=== PATIENT | male | born 1995 | race Hispanic/Latino ===

== ENCOUNTER 2022-05-23 02:49 | Emergency (ER) | payer OTHER, SELFPAY ==
--- OUTSIDE RECORDS SUMMARY | 2022-05-23 02:54 | XMS REPORT | Continuity of Care Document ---
:1995 Author Organization [facility] t Address [address] [place] [address] Care Team Providers Name Role Phone Pcp, Patient Does Not Have A Primary Care Physician +[id number] JEANIE HOLGUIN Attending Clinician Unavailable Jeanie Holguin MD Attending Clinician DAVID YARBROUGH Attending Clinician Unavailable Provider, [facility] Attending Clinician Unavailable MIRIAM PATINO Attending Clinician Unavailable Miriam [place] Attending Clinician Doctor Unassigned, [place] Attending Clinician Unavailable Payers Payer Name Policy Type Policy Number Effective Date Expiration Date [facility] [id number] 2021 [facility] MEDICAID 00:00:00 Problems Condition Condition Condition Status Onset Resolution Last Treating Co mments Source Name Details Category Date Date Treatment Clinician Date No known No known Disease Unive rs active active ity of problems problems [facility] Allergies, Adverse Reactions, Alerts Allergy Allergy Status Severity Reaction(s) Onset Inactive Treating Comm ents Source Name Type Date Date Clinician NO KNOWN Drug Active Univers ALLERGIE Class ity of S [facility] Social History Social Habit Start Date Stop Date Quantity Comments Source Exposure to 2022-05-06 2022-05-16 Not sure University of SARS-CoV-2 00:00:00 10:44:00 [facility] (event) [place] Tobacco use and 2022-03-03 2022-03-03 Smokeless tobacco Un iversity of exposure 00:00:00 00:00:00 non-user [facility] Sex Assigned At [birth year] Universit y of 00:00:00 00:00:00 [facility] Smoking Status Start Date Stop Date Source Unknown [facility] Never smoked tobacco [facility] Medications Ordered Filled Start Stop Current Ordering Indication Dosage Frequency Signature Comments Components Source Medication Medication Date Date Medication? Clinician (SIG) Name Name predniSONE 2021- No [id number] 40mg U nivers (DELTASONE) 05-16 ity of tablet 40 17:15: 16:09 [place] mg 00 :00 Medical Branch ipratropium 2021- No [id number] .5mg Univers (ATROVENT) 05-16 ity of 0.02 % 17:15: 16:13 [place] nebulizer 00 :00 Medical solution Branch 0.5 mg albuterol 2021- No [id number] 2.5mg U nivers (PROVENTIL) 05-16 ity of 2.5 mg /3 17:15: 16:13 [place] mL (0.083 00 :00 Medical %) Branch nebulizer solution 2.5 mg albuterol 2021- No [id number] 2.5mg 2.5 mg, Univers (PROVENTIL) 05-16 Inhalation i ty of 2.5 mg /3 17:15: 16:13 , ONCE [place] mL (0.083 00 :00 NOW, 1 Medical %) dose, On Branch nebulizer Sat solution 05/16/22 at 2.5 mg 1215, Routine ipratropium 2021- No [id number] .5mg 0.5 mg, Univers (ATROVENT) 05-16 Inhalation it y of 0.02 % 17:15: 16:13 , ONCE, 1 [place] nebulizer 00 :00 dose, On Medica l solution Sat Branch 0.5 mg 05/16/22 at 1215, Routine predniSONE 2021- No [id number] 40mg 40 mg, Univers (DELTASONE) 05-16 Oral, ity of tablet 40 17:15: 16:09 ONCE, 1 [place] mg 00 :[place] dose, On Medical Sat Branch 05/16/22 at 1215, Routine albuterol Yes [id number] 2{puff} Inhale 2 Univers 90 7-30 Puffs ity of mcg/actuati 00:00: every 6 [place] as on inhaler 00 (six) Medical hours as Branch needed for Shortness of Breath. benzonatate 0 Yes [id number] 200mg Take 2 Univers 100 mg 7-30 capsules ity of capsule 00:00: by mouth [place] every 8 Medical (eight) Branch hours as needed for Cough. Nebulizer & Yes [id number] Use as Univers Compressor 7-30 directed ity o f For Neb 00:00: Medical Branch albuterol 0 Yes [id number] 2.5mg Inhale 3 Univers 2.5 mg /3 7-30 mL every 4 ity of mL (0.083 00:00: (four) [place] %) 00 hours as Medical nebulizer needed for Bran ch solution Shortness of Breath. albuterol Yes [id number] 2{puff} Inhale 2 Univers 90 7-30 Puffs ity of mcg/actuati 00:00: every 6 [place] as on inhaler 00 (six) Medical hours as Branch needed for Shortness of Breath. benzonatate 0 Yes [id number] 200mg Take 2 Univers 100 mg 7-30 capsules ity of capsule 00:00: by mouth [place] every 8 Medical (eight) Branch hours as needed for Cough. Nebulizer & Yes [id number] Use as Univers Compressor 7-30 directed ity o f For Neb 00:00: Medical Branch albuterol 0 Yes [id number] 2.5mg Inhale 3 Univers 2.5 mg /3 7-30 mL every 4 ity of mL (0.083 00:00: (four) [place] %) 00 hours as Medical nebulizer needed for Bran ch solution Shortness of Breath. predniSONE 2021- Yes [id number] 40mg Take 2 Univers 20 mg 7-30 08-05 tablets by ity of tablet 00:00: 04:59 mouth in [place] 00 :00 the Medical morning Branch for 5 days. predniSONE 2021- Yes [id number] 40mg Take 2 Univers 20 mg 7-30 08-05 tablets by ity of tablet 00:00: 04:59 mouth in [place] 00 :00 the Medical morning Branch for 5 days. albuterol 2021- No [id number] 2.5mg Un heidy (PROVENTIL) 05-11 ity of 2.5 mg /3 20:45: 19:37 [place] mL (0.083 00 :00 Medical %) Branch nebulizer solution 2.5 mg ipratropium 2021- No [id number] .5mg U nivers (ATROVENT) 05-11 ity of 0.02 % 20:45: 19:38 [place] nebulizer 00 :00 Medical solution Branch 0.5 mg ipratropium 2021- No [id number] .[id number] 0.5 mg, Univers (ATROVENT) 05-11 Inhalation it y of 0.02 % 20:45: 19:38 , ONCE, 1 [place] nebulizer 00 :00 dose, On Medica l solution Mon Branch 0.5 mg 05/11/22 at 1545, Routine albuterol 2021- No [id number] 2.5mg 2.5 mg, Univers (PROVENTIL) 05-11 Inhalation i ty of 2.5 mg /3 20:45: 19:37 , ONCE, 1 [place] mL (0.083 00 :00 dose, On Medica l %) Mon Branch nebulizer 05/11/22 at solution 1545, 2.5 mg Routine fexofenadin Yes [id number] 1{tbl} Take 1 Univers e-pseudoeph 7-25 tablet by ity of edrine 00:00: mouth in [place] (GIRISH-D) 00 the Medical 60-120 mg morning Branch per tablet and 1 tablet in the evening. meclizine Yes [id number] 25mg Take 1 U nivers 25 mg 7-25 tablet by ity of tablet 00:00: mouth 3 [place] 00 (three) Medical times Branch daily as needed for Dizziness. albuterol Yes [id number] 2{puff} Inhale 2 Univers 90 7-25 Puffs ity of mcg/actuati 00:00: every 6 [place] as on inhaler 00 (six) Medical hours as Branch needed for Wheezing, Shortness of Breath or Bronchospa sm. fluticasone Yes [id number] 2{spray Use 2 Univers propionate 7-25 } Sprays in ity of 50 00:00: each [place] mcg/actuati 00 nostril in Me dical on nasal the Branch spray morning. fexofenadin Yes [id number] 1{tbl} Take 1 Univers e-pseudoeph 7-25 tablet by ity of edrine 00:00: mouth in [place] ([facility]) 00 the Medical 60-120 mg morning Branch per tablet and 1 tablet in the evening. meclizine Yes [id number] 25mg Take 1 U nivers 25 mg 7-25 tablet by ity of tablet 00:00: mouth 3 [place] (three) Medical times Branch daily as needed for Dizziness. albuterol Yes [id number] 2{puff} Inhale 2 Univers 90 7-25 Puffs ity of mcg/actuati 00:00: every 6 [place] as on inhaler 00 (six) Medical hours as Branch needed for Wheezing, Shortness of Breath or Bronchospa sm. fluticasone Yes [id number] 2{spray Use 2 Univers propionate 7-25 } Sprays in ity of 50 00:00: each [place] mcg/actuati 00 nostril in [place] dical on nasal the Branch spray morning. fexofenadin Yes [id number] 1{tbl} Take 1 Univers e-pseudoeph 7-25 tablet by ity of edrine 00:00: mouth in [place] ([facility]) 00 the Medical 60-120 mg morning Branch per tablet and 1 tablet in the evening. meclizine Yes [id number] 25mg Take 1 U nivers 25 mg 7-25 tablet by ity of tablet 00:00: mouth 3 [place] (three) Medical times Branch daily as needed for Dizziness. albuterol Yes [id number] 2{puff} Inhale 2 Univers 90 7-25 Puffs ity of mcg/actuati 00:00: every 6 [place] as on inhaler 00 (six) Medical hours as Branch needed for Wheezing, Shortness of Breath or Bronchospa sm. fluticasone Yes [id number] 2{spray Use 2 Univers propionate 7-25 } Sprays in ity of 50 00:00: each [place] mcg/actuati 00 nostril in Me dical on nasal the Branch spray morning. fexofenadin Yes [id number] 1{tbl} Take 1 Univers e-pseudoeph 7-25 tablet by ity of edrine 00:00: mouth in [place] ([facility]) 00 the Medical 60-120 mg morning Branch per tablet and 1 tablet in the evening. meclizine Yes [id number] 25mg Take 1 U nivers 25 mg 7-25 tablet by ity of tablet 00:00: mouth 3 [place] (three) Medical times Branch daily as needed for Dizziness. albuterol Yes [id number] 2{puff} Inhale 2 Univers 90 7-25 Puffs ity of mcg/actuati 00:00: every 6 [place] as on inhaler 00 (six) Medical hours as Branch needed for Wheezing, Shortness of Breath or Bronchospa sm. fluticasone Yes [id number] 2{spray Use 2 Univers propionate 7-25 } Sprays in ity of 50 00:00: each [place] mcg/actuati 00 nostril in [place] dical on nasal the Branch spray morning. fexofenadin Yes [id number] 1{tbl} Take 1 Univers e-pseudoeph 7-25 tablet by ity of edrine 00:00: mouth in [place] ([facility]) 00 the Medical 60-120 mg morning Branch per tablet and 1 tablet in the evening. meclizine Yes [id number] 25mg Take 1 U nivers 25 mg 7-25 tablet by ity of tablet 00:00: mouth 3 [place] (three) Medical times Branch daily as needed for Dizziness. albuterol Yes [id number] 2{puff} Inhale 2 Univers 90 7-25 Puffs ity of mcg/actuati 00:00: every 6 [place] as on inhaler 00 (six) Medical hours as Branch needed for Wheezing, Shortness of Breath or Bronchospa sm. fluticasone Yes [id number] 2{spray Use 2 Univers propionate 7-25 } Sprays in ity of 50 00:00: each [place] mcg/actuati 00 nostril in Me dical on nasal the Branch spray morning. cetirizine Yes [id number] 10mg Take 1 U nivers (ZYRTEC) 10 5-17 tablet by ity of mg tablet 00:00: mouth 00 daily. Medical Branch bromphenira Yes [id number] 5mL Take 5 mL Univers mine-pseudo 5-17 by mouth 4 it y of ephedrine-D 00:00: (four) [place] M (BROMFED 00 times Medical DM) 2-30-10 daily as Bran ch mg/5 mL needed for syrup Congestion /Allergies . cetirizine Yes [id number] 10mg Take 1 U nivers (ZYRTEC) 10 5-17 tablet by ity of mg tablet 00:00: mouth 00 daily. Medical Branch bromphenira Yes [id number] 5mL Take 5 mL Univers mine-pseudo 5-17 by mouth 4 it y of ephedrine-D 00:00: (four) [place] M (BROMFED 00 times Medical DM) 2-30-10 daily as Bran ch mg/5 mL needed for syrup Congestion /Allergies . cetirizine Yes [id number] 10mg Take 1 U nivers (ZYRTEC) 10 5-17 tablet by ity of mg tablet 00:00: mouth [place] 00 daily. Medical Branch bromphenira Yes [id number] 5mL Take 5 mL Univers mine-pseudo 5-17 by mouth 4 it y of ephedrine-D 00:00: (four) [place] M (BROMFED 00 times Medical DM) 2-30-10 daily as Bran ch mg/5 mL needed for syrup Congestion /Allergies . cetirizine Yes [id number] 10mg Take 1 U nivers (ZYRTEC) 10 5-17 tablet by ity of mg tablet 00:00: mouth 00 daily. Medical Branch bromphenira Yes [id number] 5mL Take 5 mL Univers mine-pseudo 5-17 by mouth 4 it y of ephedrine-D 00:00: (four) [place] M (BROMFED 00 times Medical DM) 2-30-10 daily as Bran ch mg/5 mL needed for syrup Congestion /Allergies . cetirizine 0 Yes [id number] 10mg Take 1 U nivers (ZYRTEC) 10 5-17 tablet by ity of mg tablet 00:00: mouth [place] 00 daily. Medical Branch bromphenira 0 Yes [id number] 5mL Take 5 mL Univers mine-pseudo 5-17 by mouth 4 it y of ephedrine-D 00:00: (four) [place] M (BROMFED 00 times Medical DM) 2-30-10 daily as Bran ch mg/5 mL needed for syrup Congestion /Allergies . cetirizine Yes [id number] 10mg Take 1 U nivers (ZYRTEC) 10 5-17 tablet by ity of mg tablet 00:00: mouth [place] 00 daily. Medical Branch bromphenira Yes [id number] 5mL Take 5 mL Univers mine-pseudo 5-17 by mouth 4 it y of ephedrine-D 00:00: (four) [place] M (BROMFED 00 times Medical DM) 2-30-10 daily as Bran ch mg/5 mL needed for syrup Congestion /Allergies . fluticasone 2021-0 Yes [id number] 1{spray Use 1 Univers propionate 5-17 } [place] in ity o f 50 00:00: each [place] mcg/actuati 00 nostril Medic al on nasal daily. Branch spray cetirizine 0 Yes [id number] 10mg Take 1 U nivers (ZYRTEC) 10 5-17 tablet by ity of mg tablet 00:00: mouth [place] 00 daily. Medical Branch bromphenira 0 Yes [id number] 5mL Take 5 mL Univers mine-pseudo 5-17 by mouth 4 it y of ephedrine-D 00:00: (four) [place] M (BROMFED 00 times Medical DM) 2-30-10 daily as Bran ch mg/5 mL needed for syrup Congestion /Allergies . fluticasone 2021-0 Yes [id number] 1{spray Use 1 Univers propionate 5-17 } [place] in ity o f 50 00:00: each [place] mcg/actuati 00 nostril Medic al on nasal daily. Branch spray fluticasone 2021-2021- No [id number] 1{spray Use 1 Univers propionate 5-17 07-25 } [place] in ity of 50 00:00: 00:00 each [place] mcg/actuati 00 :00 nostril Medic al on nasal daily. Branch spray bromphenira 0 Yes [id number] 5mL Take 5 mL Univers mine-pseudo 3-21 by mouth 4 it y of ephedrine-D 00:00: (four) [place] M (BROMFED 00 times Medical DM) 2-30-10 daily as Bran ch mg/5 mL needed for syrup Congestion /Allergies or Cough. bromphenira 0 2021- No [id number] 5mL Take 5 mL Univers mine-pseudo 3-21 05-17 by mouth 4 i ty of ephedrine-D 00:00: 00:00 (four) [place] M (BROMFED 00 :00 times Medical DM) 2-30-10 daily as Bran ch mg/5 mL needed for syrup Congestion /Allergies or Cough. methocarbam 2018- Yes [id number] 500mg Take 1 Univers ol 500 mg 7-10 tablet by ity o f tablet 00:00: mouth [address] [place] [address] ([facility]) Medical times Branch daily. methocarbam Yes [id number] 500mg Take 1 Univers ol 500 mg 7-10 tablet by ity o f tablet 00:00: mouth [address] [place] [address] ([facility]) Medical times Branch daily. ibuprofen 2018- Yes [id number] 800mg Take 1 Univers 800 mg 7-10 tablet by ity of tablet 00:00: mouth [place] 00 every 8 Medical (eight) Branch hours. methocarbam 2018- Yes [id number] 500mg Take 1 Univers ol 500 mg 7-10 tablet by ity o f tablet 00:00: mouth [address] [place] [address] ([facility]) Medical times Branch daily. ibuprofen 2019- Yes [id number] 800mg Take 1 Univers 800 mg 7-10 tablet by ity of tablet 00:00: mouth [place] 00 every 8 Medical (eight) Branch hours. methocarbam 2019-0 Yes [id number] 500mg Take 1 Univers ol 500 mg 7-10 tablet by ity o f tablet 00:00: mouth [address] [place] [address] ([facility]) Medical times Branch daily. ibuprofen 2019- Yes [id number] 800mg Take 1 Univers 800 mg 7-10 tablet by ity of tablet 00:00: mouth [place] 00 every 8 Medical (eight) Branch hours. methocarbam 2018-0 Yes [id number] 500mg Take 1 Univers ol 500 mg 7-10 tablet by ity o f tablet 00:00: mouth 4 (four) Medical times Branch daily. ibuprofen 2019-0 Yes [id number] 800mg Take 1 Univers 800 mg 7-10 tablet by ity of tablet 00:00: mouth [place] 00 every 8 Medical (eight) Branch hours. ibuprofen 2019-0 Yes [id number] 800mg Take 1 Univers 800 mg 7-10 tablet by ity of tablet 00:00: mouth [place] 00 every 8 Medical (eight) Branch hours. methocarbam 2019-0 Yes [id number] 500mg Take 1 Univers ol 500 mg 7-10 tablet by ity o f tablet 00:00: mouth (four) Medical times Branch daily. methocarbam 2019-0 Yes [id number] 500mg Take 1 Univers ol 500 mg 7-10 tablet by ity o f tablet 00:00: mouth (four) Medical times Branch daily. ibuprofen 2019-0 Yes [id number] 800mg Take 1 Univers 800 mg 7-10 tablet by ity of tablet 00:00: mouth [place] 00 every 8 Medical (eight) Branch hours. methocarbam 2019-0 Yes [id number] 500mg Take 1 Univers ol 500 mg 7-10 tablet by ity o f tablet 00:00: mouth (four) Medical times Branch daily. ibuprofen 2019-0 Yes [id number] 800mg Take 1 Univers 800 mg 7-10 tablet by ity of tablet 00:00: mouth [place] 00 every 8 Medical (eight) Branch hours. methocarbam 2019-0 Yes [id number] 500mg Take 1 Univers ol 500 mg 7-10 tablet by ity o f tablet 00:00: mouth (four) Medical times Branch daily. ibuprofen 2019-0 Yes [id number] 800mg Take 1 Univers 800 mg 7-10 tablet by ity of tablet 00:00: mouth [place] 00 every 8 Medical (eight) Branch hours. methocarbam 2019-0 Yes [id number] 500mg Take 1 Univers ol 500 mg 7-10 tablet by ity o f tablet 00:00: mouth 4 (four) Medical times Branch daily. ibuprofen 2019-0 Yes [id number] 800mg Take 1 Univers 800 mg 7-10 tablet by ity of tablet 00:00: mouth [place] 00 every 8 Medical (eight) Branch hours. ibuprofen 2019-0 Yes [id number] 800mg Take 1 Univers 800 mg 7-10 tablet by ity of tablet 00:00: mouth [place] 00 every 8 Medical (eight) Branch hours. hydrocortis 2016 Yes 4[drp] Place 4 U nivers one-acetic 7-13 Drops in ity o f acid 00:00: right ear [place] (VOSOL-HC) 00 3 (three) Medi ashkan 1-2 % otic times Branch drops daily. ibuprofen 2016 Yes 800mg Take 1 Unive rs (MOTRIN) 7-13 tablet by ity of 800 mg 00:00: mouth [place] tablet 00 every 6 Medical (six) Branch hours as needed for Pain unrelieved by Tylenol or Temp > 38.5 C. ciprofloxac Yes 4[drp] Place 4 U nivers in-dexameth 7-13 Drops in ity of asone 00:00: right ear [place] (CIPRODEX) 00 2 (two) Medica l 0.3-0.1 % times Branch otic drops daily. hydrocortis Yes 4[drp] Place 4 U nivers one-acetic 7-13 Drops in ity o f acid 00:00: right ear [place] (VOSOL-HC) 00 3 (three) Medi ashkan 1-2 % otic times Branch drops daily. ibuprofen Yes 800mg Take 1 Unive rs (MOTRIN) 7-13 tablet by ity of 800 mg 00:00: mouth [place] tablet 00 every 6 Medical (six) Branch hours as needed for Pain unrelieved by Tylenol or Temp > 38.5 C. ciprofloxac Yes 4[drp] Place 4 U nivers in-dexameth 7-13 Drops in ity of asone 00:00: right ear [place] (CIPRODEX) 00 2 (two) Medica l 0.3-0.1 % times Branch otic drops daily. hydrocortis Yes 4[drp] Place 4 U nivers one-acetic 7-13 Drops in ity o f acid 00:00: right ear [place] (VOSOL-HC) 00 3 (three) Medi ashkan 1-2 % otic times Branch drops daily. ibuprofen Yes 800mg Take 1 Unive rs (MOTRIN) 7-13 tablet by ity of 800 mg 00:00: mouth [place] tablet 00 every 6 Medical (six) Branch hours as needed for Pain unrelieved by Tylenol or Temp > 38.5 C. hydrocortis Yes 4[drp] Place 4 U nivers one-acetic 7-13 Drops in ity o f acid 00:00: right ear [place] (VOSOL-HC) 00 3 (three) Medi ashkan 1-2 % otic times Branch drops daily. ciprofloxac Yes 4[drp] Place 4 U nivers in-dexameth 7-13 Drops in ity of asone 00:00: right ear [place] (CIPRODEX) 00 2 (two) Medica l 0.3-0.1 % times Branch otic drops daily. ibuprofen Yes 800mg Take 1 Unive rs (MOTRIN) 7-13 tablet by ity of 800 mg 00:00: mouth [place] tablet 00 every 6 Medical (six) Branch hours as needed for Pain unrelieved by Tylenol or Temp > 38.5 C. ciprofloxac Yes 4[drp] Place 4 U nivers in-dexameth 7-13 Drops in ity of asone 00:00: right ear [place] (CIPRODEX) 00 2 (two) Medica l 0.3-0.1 % times Branch otic drops daily. hydrocortis Yes 4[drp] Place 4 U nivers one-acetic 7-13 Drops in ity o f acid 00:00: right ear [place] (VOSOL-HC) 00 3 (three) Medi ashkan 1-2 % otic times Branch drops daily. ibuprofen Yes 800mg Take 1 Unive rs (MOTRIN) 7-13 tablet by ity of 800 mg 00:00: mouth [place] tablet 00 every 6 Medical (six) Branch hours as needed for Pain unrelieved by Tylenol or Temp > 38.5 C. ciprofloxac Yes 4[drp] Place 4 U nivers in-dexameth 7-13 Drops in ity of asone 00:00: right ear [place] (CIPRODEX) 00 2 (two) Medica l 0.3-0.1 % times Branch otic drops daily. hydrocortis 2016- Yes 4[drp] Place 4 U nivers one-acetic 7-13 Drops in ity o f acid 00:00: right ear [place] (VOSOL-HC) 00 3 (three) Medi ashkan 1-2 % otic times Branch drops daily. ibuprofen 2015- Yes 800mg Take 1 Unive rs (MOTRIN) 7-13 tablet by ity of 800 mg 00:00: mouth [place] tablet 00 every 6 Medical (six) Branch hours as needed for Pain unrelieved by Tylenol or Temp > 38.5 C. ciprofloxac 2015- Yes 4[drp] Place 4 U nivers in-dexameth 7-13 Drops in ity of asone 00:00: right ear [place] (CIPRODEX) 00 2 (two) Medica l 0.3-0.1 % times Branch otic drops daily. hydrocortis Yes 4[drp] Place 4 U nivers one-acetic 7-13 Drops in ity o f acid 00:00: right ear [place] (VOSOL-HC) 00 3 (three) Medi ashkan 1-2 % otic times Branch drops daily. ibuprofen Yes 800mg Take 1 Unive rs (MOTRIN) 7-13 tablet by ity of 800 mg 00:00: mouth [place] tablet 00 every 6 Medical (six) Branch hours as needed for Pain unrelieved by Tylenol or Temp > 38.5 C. ciprofloxac 2015- Yes 4[drp] Place 4 U nivers in-dexameth 7-13 Drops in ity of asone 00:00: right ear [place] (CIPRODEX) 00 2 (two) Medica l 0.3-0.1 % times Branch otic drops daily. hydrocortis 0 Yes 4[drp] Place 4 U nivers one-acetic 7-13 Drops in ity o f acid 00:00: right ear [place] (VOSOL-HC) 00 3 (three) Medi ashkan 1-2 % otic times Branch drops daily. ibuprofen 2015- Yes 800mg Take 1 Unive rs (MOTRIN) 7-13 tablet by ity of 800 mg 00:00: mouth [place] tablet 00 every 6 Medical (six) Branch hours as needed for Pain unrelieved by Tylenol or Temp > 38.5 C. hydrocortis Yes 4[drp] Place 4 U nivers one-acetic 7-13 Drops in ity o f acid 00:00: right ear [place] (VOSOL-HC) 00 3 (three) Medi ashkan 1-2 % otic times Branch drops daily. ibuprofen Yes 800mg Take 1 Unive rs (MOTRIN) 7-13 tablet by ity of 800 mg 00:00: mouth [place] tablet 00 every 6 Medical (six) Branch hours as needed for Pain unrelieved by Tylenol or Temp > 38.5 C. ciprofloxac Yes 4[drp] Place 4 U nivers in-dexameth 7-13 Drops in ity of asone 00:00: right ear [place] (CIPRODEX) 00 2 (two) Medica l 0.3-0.1 % times Branch otic drops daily. ciprofloxac Yes 4[drp] Place 4 U nivers in-dexameth 7-13 Drops in ity of asone 00:00: right ear [place] (CIPRODEX) 00 2 (two) Medica l 0.3-0.1 % times Branch otic drops daily. hydrocortis Yes 4[drp] Place 4 U nivers one-acetic 7-13 Drops in ity o f acid 00:00: right ear [place] (VOSOL-HC) 00 3 (three) Medi ashkan 1-2 % otic times Branch drops daily. ibuprofen Yes 800mg Take 1 Unive rs (MOTRIN) 7-13 tablet by ity of 800 mg 00:00: mouth [place] tablet 00 every 6 Medical (six) Branch hours as needed for Pain unrelieved by Tylenol or Temp > 38.5 C. ciprofloxac Yes 4[drp] Place 4 U nivers in-dexameth 7-13 Drops in ity of asone 00:00: right ear [place] (CIPRODEX) 00 2 (two) Medica l 0.3-0.1 % times Branch otic drops daily. Vital Signs Vital Name Observation Time Observation Value Comments Source Systolic blood 2022-05-16 15:52:00 122 mm[Hg] Univer sity of pressure [place] [facility] Diastolic blood 2022-05-16 15:52:00 82 mm[Hg] Unive rsity of pressure [place] [facility] Heart rate 2022-05-16 15:52:00 94 /min [facility] [place] [facility] Body temperature 2022-05-16 15:52:00 36.5 [facility] [place] [facility] ers[facility] [place] [facility] Body height 2022-05-16 15:52:00 172.7 cm [facility] [place] [facility] Body weight 2022-05-16 15:52:00 112.175 kg [facility] [place] [facility] BMI 2022-05-16 15:52:00 37.60 kg/m2 [facility] [place] [facility] Oxygen saturation in 2022-05-16 15:52:00 94 /min University of Arterial blood by [facility] Pulse oximetry Branch Systolic blood 2022-05-11 19:18:00 126 mm[Hg] Univer sity of pressure [place] [facility] Diastolic blood 2022-05-11 19:18:00 81 mm[Hg] Unive rsity of pressure [place] [facility] Heart rate 2022-05-11 19:18:00 88 /min [facility] [place] [facility] Body temperature 2022-05-11 19:18:00 36.78 [place] [facility] [place] [facility] Respiratory rate 2022-05-11 19:18:00 18 /min [facility] ers[facility] [place] [facility] Body height 2022-05-11 19:18:00 172.7 cm [facility] [place] [facility] Body weight 2022-05-11 19:18:00 115.667 kg [facility] [place] [facility] BMI 2022-05-11 19:18:00 38.77 kg/m2 [facility] [place] [facility] Oxygen saturation in 2022-05-11 19:18:00 98 /min University of Arterial blood by [facility] ashkan Pulse oximetry Branch Systolic blood 2022-03-03 19:43:00 123 mm[Hg] Univer sity of pressure [place] [facility] Diastolic blood 2022-03-03 19:43:00 80 mm[Hg] Unive rsity of pressure [place] [facility] Heart rate 2022-03-03 19:43:00 83 /min [facility] [place] [facility] Body temperature 2022-03-03 19:43:00 36.61 [place] [facility] [place] [facility] Respiratory rate 2022-03-03 19:43:00 17 /min [facility] [place] [facility] Body height 2022-03-03 19:43:00 172.7 cm [facility] [place] [facility] Body weight 2022-03-03 19:43:00 114.306 kg [facility] [place] [facility] BMI 2022-03-03 19:43:00 38.32 kg/m2 [facility] [place] [facility] Oxygen saturation in 2022-03-03 19:43:00 98 /min [facility] of Arterial blood by [place] [facility] Pulse oximetry Branch Systolic blood 2022-01-05 23:58:00 118 mm[Hg] Univer [facility]ity of pressure [facility] Diastolic blood 2022-01-05 23:58:00 77 mm[Hg] Unive rsity of pressure [facility] Heart rate 2022-01-05 23:58:00 76 /min [facility] Body temperature 2022-01-05 23:58:00 36.72 [facility] Respiratory rate 2022-01-05 23:58:00 14 /min [facility] Body height 2022-01-05 23:58:00 172.7 cm [facility] Body weight 2022-01-05 23:58:00 113.399 kg [facility] BMI 2022-01-05 23:58:00 38.01 kg/m2 [facility] Oxygen saturation in 2022-01-05 23:58:00 99 /min [facility] of Arterial blood by [facility] Pulse oximetry Branch Procedures Procedure Date / Time Performed Performing Clinician [facility] CONSENT/REFUSAL FOR 2022-01-05 23:52:58 Doctor Unassigned, No [facility] DIAGNOSIS AND Name Medical Branch TREATMENT ASSIGNMENT OF BENEFITS 2022-01-05 23:52:45 Doctor Unassigned, No [facility] Name Medical Branch Encounters Start End Encounter Admission Attending Care Care Encounter Source Date/Time Date/Time Type Type Clinicians Facility Department ID 2022-05-16 2022-05-16 Outpatient Quintin HOLGUIN [facility] [id number] Univers 11:00:00 11:12:47 JEANIE roach [facility] 2022-05-16 2022-05-16 [facility] [id number] Univers 11:00:00 11:12:47 Care Jeanie HEALTH [id number] it y [facility] 4.2.7.2.686 Jena as NO?BLEA [id number] [address] 2022-05-16 2022-05-16 Outpatient R [facility] [id number] Univers 11:00:00 11:00:00 [id number] ity [facility] 2022-05-16 2022-05-16 Telephone [facility] [id number] Univers 00:00:00 00:00:00 Jeanie HEALTH 350.1.13.10 it y of [place] 4.2.7.2.686 Jean as NO?BLEA [id number] [address] 2022-05-15 2022-05-15 [facility] [id number] Univers 14:30:00 14:30:00 DAVID [id number] y [facility] 2022-05-15 2022-05-15 [facility] [id number] Univers 14:30:00 14:30:00 DAVID [facility] 2022-05-12 2022-05-12 Telephone Provider, [facility] [id number] Univers 00:00:00 00:00:00 Ang [facility] [id number] it y of [facility]gent [facility] [place] [id number] [place] NO?BLEA [id number] [address] 2022-05-11 2022-05-11 Outpatient R CAREY [facility] [id number] Univers 14:20:00 15:02:19 MIRIAM roach o f [facility] 2022-05-11 2022-05-11 Urgent [address] Patino [facility] [id number]. [id number] Univers 14:20:00 14:40:00 Care Adrian Jeanie HEALTH 350.1.13.10 ity of [place] [id number] Jean as NO?BLEA [id number] [facility] [address] MEDICAL OFFICE [facility]ILDING 2022-05-11 2022-05-11 Outpatient R [facility] [id number] Univers 14:20:00 14:20:00 [id number] ity [facility] 2022-05-11 2022-05-11 Letter [facility] [id number] Univers 00:00:00 00:00:00 (Out) Ang Db HEALTH 350.1.13.10 it y of Urgent Care [place] 4.2.7.2.686 [place] NO?BLEA [id number] [facility] [address] MEDICAL OFFICE BUILDING 2022-03-30 2022-03-30 Refill [facility] [id number] Univers 00:00:00 00:00:00 Jeanie HEALTH 350.1.13.10 it y of [place] 4.2.7.2.686 Jean as NO?BLEA [id number] [address] MEDICAL OFFICE [facility] 2022-03-03 2022-03-03 Outpatient R [facility] [id number] Univers 15:00:00 15:00:00 [id number] ity [facility] 2022-03-03 2022-03-03 [facility] [id number] Univers 15:00:00 15:00:00 [facility] [id number] it [facility] [id number] Jean as NO?BLEA [id number] [address] MEDICAL OFFICE [facility] 2022-03-03 2022-03-03 [facility] [id number] Univers 15:00:00 14:54:22 JEANIEYULIA roach [facility] 2022-01-05 2022-01-05 [facility] [id number] Univers 19:00:00 19:11:03 MIRIAM roach o f [facility] 2022-01-05 2022-01-05 [facility]gent [facility] [id number] Univers 19:00:00 19:11:[address] [facility] [id number] i ty of [place] 4.2.7.2.686 Jean as NO?BLEA [id number] [facility] [address] MEDICAL OFFICE BU[facility]ING 2022-01-05 2022-01-05 Orders Doctor LEANNA [id number] Univers 00:00:00 00:00:00 Only Unassigned, MONTEZ 350.1.13.10 ity of [place] [facility] [id number] Jean as [id number] [address] 2007-12-15 2007-12-[address] [facility] [id number] Univers 00:00:00 14:56:56 8 [facility] 2007-12-15 2007-12-[address] [facility] [id number] Univers 00:00:00 00:00:00 [id number] [facility] Results This patient has no known results.
[2022-05-23] MEDS ORDERED: IPRATROPIUM BROM 0.5MG/2.5ML ONE (03:35)
[2022-05-23] MEDS ORDERED: ALBUTEROL 2.5 MG/3 ML NEB SOL ONE (03:35)
[2022-05-23] MEDS ORDERED: METHYLPREDNISOLONE 125 MG INJ ONE (03:36)
[2022-05-23 03:44] LABS: Absolute Lymphocytes (CBC) 2.8 K/uL (0.7-4.9); Lymphocytes % 26.3 % (15.3-44.8); MCV 83.9 fL (80-100); MPV 9.6 fL (7.6-11.3); RBC Red Blood Cell Count 4.89 M/uL (4.33-5.43)
[2022-05-23 03:48] LABS: Protime INR 1.11
[2022-05-23 04:11] LABS: ALT/SGPT 43 U/L (12-78); AST/SGOT 20 U/L (15-37); Albumin 3.9 g/dL (3.4-5.0); Alkaline Phosphatase 57 U/L (45-117); BUN Blood Urea Nitrogen 17 mg/dL (7-18); Bicarbonate 31 mmol/L (21-32); Bilirubin Direct 0.2 mg/dL (0-0.2); Bilirubin Total 0.9 mg/dL (0.2-1.0); Glomerular Filtration Rate 112 ml/min (=/>90); Glucose Level 98 mg/dL (74-106); Magnesium 2.1 mg/dL (1.8-2.4); NT PRO-BNP 7 pg/mL (<125); Potassium 3.4 mmol/L (3.5-5.1); Protein, Total 7.3 g/dL (6.4-8.2); Sodium Level 140 mmol/L (136-145)
[2022-05-23 04:13] LABS: Troponin High Sensitivity < 3.0 pg/mL (<58.9)
[2022-05-23] MEDS ORDERED: CEFTRIAXONE 1000 MG/VIAL ONE (05:55)
[2022-05-23] MEDS ORDERED: AZITHROMYCIN 250 MG TAB ONE (05:55)
--- NOTE | 2022-05-23 05:56 | ER ---
Nurse's Notes [facility] Name: Moses Renae Age: 27 yrs Sex: Male : 1995 Arrival Date: 05/23/2022 Time: 02:52 Bed 16 Private MD: Diagnosis: Unspecified asthma with (acute) exacerbation;Other pneumonia, unspecified organism Presentation: 05/23 02:59 Chief complaint: Patient states: "I have been having trouble breathing for the past two tw5 weeks. I was given medication for my cough and an inhaler. Today I ran out of my inhaler and I woke up feeling like I couldn't breath. I was tested for covid and it was negative.". Coronavirus screen: Vaccine status: Patient reports being unvaccinated. Ebola Screen: Patient negative for fever greater than or equal to 101.5 degrees Fahrenheit, and additional compatible Ebola Virus Disease symptoms Patient denies exposure to infectious person. Patient denies travel to an Ebola-affected area in the 21 days before illness onset. Initial Sepsis Screen: Does the patient meet any 2 criteria? RR > 20 per min. HR > 90 bpm. Does the patient have a suspected source of infection? Yes: Productive cough/pneumonia If YES to both, name of provider notified: Pilo Castillo MD Risk Assessment: Do you want to hurt yourself or someone else? Patient reports no desire to harm self or others. Onset of symptoms is unknown. 02:59 Method Of Arrival: Ambulatory tw5 02:59 Acuity: JIMMY 2 tw5 Triage Assessment: 03:01 General: Appears uncomfortable, Behavior is calm, cooperative, appropriate for age. tw5 Pain: Complains of pain in chest Pain currently is 8 out of 10 on a pain scale. Historical: - Allergies: 03:01 No Known Allergies; tw5 - Home Meds: 03:01 "inhaler" [Active]; tw5 - PMHx: 03:01 Asthma; tw5 - PSHx: 03:01 None; tw5 - Immunization history:: Flu vaccine is not up to date. - Social history:: Smoking status: Patient denies any tobacco usage or history of. Screenin:07 Abuse screen: Denies threats or abuse. Nutritional screening: No deficits noted. tw5 Tuberculosis screening: No symptoms or risk factors identified. 05:12 Fall Risk No fall in past 12 months (0 pts). No secondary diagnosis (0 pts). IV access ll3 (20 points). Ambulatory Aid- None/Bed Rest/Nurse Assist (0 pts). Gait- Normal/Bed Rest/Wheelchair (0 pts) Mental Status- Oriented to own ability (0 pts). Total Goldsmith Fall Scale indicates No Risk (0-24 pts). Assessment: 03:06 General: Appears uncomfortable, Behavior is calm, cooperative. Pain: Complains of pain tw5 in chest Pain currently is 8 out of 10 on a pain scale. Neuro: Level of Consciousness is awake, alert, obeys commands, Oriented to person, place, time, situation. Cardiovascular: Patient's skin is warm and dry. Respiratory: Reports shortness of breath at rest on exertion Airway is patent Respiratory effort is labored, Respiratory pattern is tachypnea Breath sounds with wheezes bilaterally. Derm: Skin is pink, warm \\T\\ dry. 04:24 Reassessment: Patient and/or family updated on plan of care and expected duration. Pain ll3 level reassessed. Patient is alert, oriented x 3, equal unlabored respirations, skin warm/dry/pink. Patient states feeling better. 05:12 Reassessment: No changes from previously documented assessment. Patient and/or family ll3 updated on plan of care and expected duration. Pain level reassessed. Patient is alert, oriented x 3, equal unlabored respirations, skin warm/dry/pink. Vital Signs: 02:59 BP 123 / 79; Pulse 90; Resp 24; Temp 98.1; Pulse Ox 96% on R/A; Weight 112.04 kg; tw5 Height 5 ft. 8 in. (172.72 cm); Pain 8/10; 04:24 BP 113 / 70; Pulse 110; Resp 18; Pulse Ox 97% on R/A; ll3 05:12 BP 112 / 75; Pulse 92; Resp 19; Pulse Ox 96% on R/A; ll3 02:59 Body Mass Index 37.56 (112.04 kg, 172.72 cm) tw5 ED Course: 02:52 Patient arrived in ED. bp1 02:59 Pilo Castillo MD is Attending Physician. 7 03:01 Triage completed. tw5 03:01 Arm band placed on Patient placed in an exam room. tw5 03:35 Inserted saline lock: 20 gauge in left antecubital area, using aseptic technique. Blood oe collected. 03:48 Notified ED physician of a critical lab result(s). D-dimer 612. ll3 04:00 XRAY Chest (1 view) In Process Unspecified. EDLA 04:04 Stephen El, RENNY is Primary Nurse. ll3 05:12 Patient has correct armband on for positive identification. Bed in low position. Call 3 light in reach. Side rails up X 1. 05:12 No provider procedures requiring assistance completed. ll3 05:54 Wilmer Dow MD is Referral Physician. 7 06:13 Blood Culture Adult (2) Sent. lg3 06:14 IV discontinued, intact, bleeding controlled, No redness/swelling at site. Pressure lg3 dressing applied. Administered Medications: 03:36 Drug: Albuterol - atroVENT (ipratropium) (3:1) (2.5 mg - 0.5 mg) 3 ml Route: Nebulizer; ll3 05:09 Follow up: Response: No adverse reaction; Marked relief of symptoms ll3 03:36 Drug: SOLU-Medrol (methylPrednisoLONE) 125 mg Route: IVP; Site: left antecubital; ll3 05:08 Follow up: Response: No adverse reaction; Marked relief of symptoms ll3 05:52 Drug: Rocephin (cefTRIAXone) 1 grams Route: IV; Rate: per protocol; Site: left lg3 antecubital; 05:52 Follow up: Response: No adverse reaction lg3 06:17 Follow up: IV Status: Completed infusion lg3 05:52 Drug: AZITHromycin 500 mg Route: PO; lg3 05:52 Follow up: Response: No adverse reaction lg3 Medication: 05:13 VIS not applicable for this client. ll3 Outcome: 05:55 Discharge ordered by . 7 06:14 Discharged to home ambulatory. lg3 06:14 Condition: stable 06:14 Discharge instructions given to patient, Instructed on discharge instructions, follow up and referral plans. medication usage, Demonstrated understanding of instructions, follow-up care, medications, Prescriptions given X 4. 06:19 Patient left the ED. lg3 Signatures: Dispatcher [employer] [facility] Jean Pierre Palmer Lacie, RN RN lg3 Miriam Gonzalez Maurice, MD MD mh7 Mar Norris 5 Stephen El RN RN ll3
--- NOTE | 2022-05-23 05:56 | EDPHYS ---
Physician Documentation [facility] Name: Moses Renae Age: 27 yrs Sex: Male : 1995 Arrival Date: 05/23/2022 Time: 02:52 Bed 16 Private MD: ED Physician Pilo Castillo HPI: 05/23 03:10 This 27 yrs old Male presents to ER via Ambulatory with complaints of Asthma mh7 Exacerbation. 03:10 The patient presents to the emergency department with wheezing, Current therapy: mh7 albuterol inhaler, albuterol nebs, that began while working, after exposure to animal dander, the patient was reported to have audible wheezing, chest congestion, productive cough, trouble breathing, Pre-hospital care: rescue inhaler, albuterol. 03:10 Onset: The symptoms/episode began/occurred 2 week(s) ago. mh7 03:10 Modifying factors: The symptoms are alleviated by inhaler, albuterol, nebulizer mh7 treatment, the symptoms are aggravated by animal dander, exertion. 03:10 Associated signs and symptoms: Pertinent negatives: chest pain, choking, fever, mh7 headache, nausea, palpitations, rash, vomiting. Severity of symptoms: At their worst the symptoms were moderate yesterday, in the emergency department the symptoms have improved moderately. The patient has experienced similar episodes in the past, several times. Historical: - Allergies: 03:01 No Known Allergies; tw5 - Home Meds: 03:01 "inhaler" [Active]; tw5 - PMHx: 03:01 Asthma; tw5 - PSHx: 03:01 None; tw5 - Immunization history:: Flu vaccine is not up to date. - Social history:: Smoking status: Patient denies any tobacco usage or history of. ROS: 03:10 Constitutional: Negative for fever, chills, and weight loss, Eyes: Negative for injury, mh7 pain, redness, and discharge, ENT: Negative for injury, pain, and discharge, Neck: Negative for injury, pain, and swelling, Cardiovascular: Negative for chest pain, palpitations, and edema, Abdomen/GI: Negative for abdominal pain, nausea, vomiting, diarrhea, and constipation, Back: Negative for injury and pain, : Negative for injury, bleeding, discharge, and swelling, MS/Extremity: Negative for injury and deformity, Skin: Negative for injury, rash, and discoloration, Neuro: Negative for headache, weakness, numbness, tingling, and seizure, Psych: Negative for depression, anxiety, suicide ideation, homicidal ideation, and hallucinations, Allergy/Immunology: Negative for hives, rash, and allergies, Endocrine: Negative for neck swelling, polydipsia, polyuria, polyphagia, and marked weight changes, Hematologic/Lymphatic: Negative for swollen nodes, abnormal bleeding, and unusual bruising. Exam: 03:10 Constitutional: This is a well developed, well nourished patient who is awake, alert, mh7 and in no acute distress. Head/Face: Normocephalic, atraumatic. Eyes: Pupils equal round and reactive to light, extra-ocular motions intact. Lids and lashes normal. Conjunctiva and sclera are non-icteric and not injected. Cornea within normal limits. Periorbital areas with no swelling, redness, or edema. ENT: Nares patent. No nasal discharge, no septal abnormalities noted. Tympanic membranes are normal and external auditory canals are clear. Oropharynx with no redness, swelling, or masses, exudates, or evidence of obstruction, uvula midline. Mucous membranes moist. Neck: Trachea midline, no thyromegaly or masses palpated, and no cervical lymphadenopathy. Supple, full range of motion without nuchal rigidity, or vertebral point tenderness. No Meningismus. Chest/axilla: Normal chest wall appearance and motion. Nontender with no deformity. No lesions are appreciated. Cardiovascular: Regular rate and rhythm with a normal S1 and S2. No gallops, murmurs, or rubs. Normal PMI, no JVD. No pulse deficits. 03:10 Abdomen/GI: Soft, non-tender, with normal bowel sounds. No distension or tympany. No guarding or rebound. No evidence of tenderness throughout. Back: No spinal tenderness. No costovertebral tenderness. Full range of motion. Skin: Warm, dry with normal turgor. Normal color with no rashes, no lesions, and no evidence of cellulitis. MS/ Extremity: Pulses equal, no cyanosis. Neurovascular intact. Full, normal range of motion. Neuro: Awake and alert, GCS 15, oriented to person, place, time, and situation. Cranial nerves II-XII grossly intact. Motor strength 5/5 in all extremities. Sensory grossly intact. Cerebellar exam normal. Normal gait. Psych: Awake, alert, with orientation to person, place and time. Behavior, mood, and affect are within normal limits. 03:10 Respiratory: the patient does not display signs of respiratory distress, Respirations: prolonged exhalation, that is mild, Breath sounds: wheezing: expiratory that is moderate, is heard diffusely. Vital Signs: 02:59 BP 123 / 79; Pulse 90; Resp 24; Temp 98.1; Pulse Ox 96% on R/A; Weight 112.04 kg; tw5 Height 5 ft. 8 in. (172.72 cm); Pain 8/10; 04:24 BP 113 / 70; Pulse 110; Resp 18; Pulse Ox 97% on R/A; ll3 05:12 BP 112 / 75; Pulse 92; Resp 19; Pulse Ox 96% on R/A; ll3 02:59 Body Mass Index 37.56 (112.04 kg, 172.72 cm) tw5 MDM: 05:50 Differential diagnosis: acute asthma, exercise-induced asthma, reactive airway, CHF, mh7 URI, Pneumonia. Data reviewed: vital signs, nurses notes, lab test result(s), cardiac enzymes, CBC, electrolytes, EKG, radiologic studies, plain films. Data interpreted: Pulse oximetry: on room air is 98 %. Interpretation: normal. Counseling: I had a detailed discussion with the patient and/or guardian regarding: the historical points, exam findings, and any diagnostic results supporting the discharge/admit diagnosis, lab results, radiology results, the need for outpatient follow up, to return to the emergency department if symptoms worsen or persist or if there are any questions or concerns that arise at home. Response to treatment: the patient's symptoms have resolved after treatment, the patient's blood pressure is in an acceptable range, mental status has returned to baseline, the patient no longer shows bradycardia, the patient is not short of breath, the patient is not tachycardic, the patient's pain is gone, the patient's temperature has normalized. ED course: Feels better, well appearing, NAD, VSS, no focal neurological deficits. No SOB, wheezing, or other complaints. Lungs CTA bilaterally, good air movement, no wheezing, rhonchi, or retractions. Discussed test results and findings. Patient states that he is ready for discharge home.. 05:55 Patient medically screened. 05/23 03:21 Order name: Basic Metabolic Panel; Complete Time: 04:43 [facility] 05/23 03:21 Order name: CBC with Diff; Complete Time: 04:00 [facility] 05/23 03:21 Order name: LFT's; Complete Time: 04:43 [facility] 05/23 03:21 Order name: Magnesium; Complete Time: 04:43 [facility] 05/23 03:21 Order name: NT PRO-BNP; Complete Time: 04:43 [facility] 05/23 03:21 Order name: PT-INR; Complete Time: 04:00 [facility] 05/23 03:21 Order name: Troponin HS; Complete Time: 04:43 [facility] 05/23 03:21 Order name: XRAY Chest (1 view) [facility] 05/23 03:21 Order name: D-Dimer; Complete Time: 04:00 [facility] 05/23 03:23 Order name: COVID-19 SARS RT PCR (Document "Date of Onset" if Symptomatic); Complete 7 Time: 05:06 05/23 05:43 Order name: Blood Culture Adult (2) 05/23 03:21 Order name: EKG; Complete Time: 03:22 [facility] 05/23 03:21 Order name: Cardiac monitoring; Complete Time: 04:04 [facility] 05/23 03:21 Order name: EKG - Nurse/Tech; Complete Time: 03:24 [facility] 05/23 03:21 Order name: IV Saline Lock; Complete Time: 03:36 [facility] 05/23 03:21 Order name: Labs collected and sent; Complete Time: 03:36 [facility] 05/23 03:21 Order name: O2 Per Protocol; Complete Time: 03:36 [facility] 05/23 03:21 Order name: O2 Sat Monitoring; Complete Time: 03:36 mh7 Administered Medications: 03:36 Drug: Albuterol - atroVENT (ipratropium) (3:1) (2.5 mg - 0.5 mg) 3 ml Route: Nebulizer; 3 05:09 Follow up: Response: No adverse reaction; Marked relief of symptoms ll3 03:36 Drug: SOLU-Medrol (methylPrednisoLONE) 125 mg Route: IVP; Site: left antecubital; 3 05:08 Follow up: Response: No adverse reaction; Marked relief of symptoms 3 05:52 Drug: Rocephin (cefTRIAXone) 1 grams Route: IV; Rate: per protocol; Site: left lg3 antecubital; 05:52 Follow up: Response: No adverse reaction lg3 06:17 Follow up: IV Status: Completed infusion 3 05:52 Drug: AZITHromycin 500 mg Route: PO; lg3 05:52 Follow up: Response: No adverse reaction lg3 Disposition Summary: 05/23/22 05:55 Discharge Ordered Location: Home [facility] Problem: an acute exacerbation [facility] Symptoms: have improved [facility] Condition: Stable [facility] Diagnosis - Unspecified asthma with (acute) exacerbation [facility] - Other pneumonia, unspecified organism [facility] Followup: [facility] - With: Private Physician - When: 1 - 2 days - Reason: Worsening of condition, Recheck today's complaints, Continuance of care, Re-evaluation by your physician Followup: [facility] - With: Wilmer Dow MD - When: 1 - 2 days - Reason: Worsening of condition, Recheck today's complaints Discharge Instructions: - Discharge Summary Sheet [facility] - Asthma, Adult, [id number] [facility] - Community-Acquired Pneumonia, Adult, [id number] [facility] Forms: - Medication Reconciliation Form [facility] - Thank You Letter [facility] - Antibiotic Education [facility] - Prescription Opioid Use [facility] Prescriptions: - albuterol sulfate 90 mcg/actuation Inhalation HFA aerosol inhaler - inhale 2 puff by INHALATION route every 4-6 hours As needed; 1 Inhaler; [facility] Refills: 0, Product Selection Permitted - Tessalon Perles 100 mg Oral Capsule - take 1 capsule by ORAL route every 8 hours As needed; 15 capsule; Refills: 0, [facility] Product Selection Permitted - Zithromax Z-Nawaf 250 mg Oral Tablet - take 1 tablet by ORAL route as directed for 5 days Day 1 - take two (2) tablets [facility] one time. Day 2, 3, 4 , 5 take one (1) tablet once daily.; 6 tablet; Refills: 0, Product Selection Permitted - Prednisone 20 mg Oral Tablet - take 2 tablets by ORAL route once daily for 5 days; 10 tablet; Refills: 0, [facility] Product Selection Permitted Signatures: Dispatcher [facility] Linda Albert RN RN lg3 Pilo Castillo MD MD mh7 Mar Norris tw5 Stephen El RN RN ll3
[2022-05-23 06:26] VITALS: TEMP 98.1
[2022-05-23 06:31] VITALS: BP 112/75; O2SAT 96
--- NOTE | 2022-05-23 19:25 | RAD REPORT ---
EXAM DESCRIPTION: XR Chest 1 View AP CLINICAL HISTORY: Cough COMPARISON: None. TECHNIQUE: Chest 1 View AP FINDINGS: Mild decreased inspiration (decreased lung volumes). Heart size and pulmonary vessels within normal limits. Mild left perihilar interstitial lung prominence. Mild hazy right lower lung field opacity. No significant pleural effusion or pneumothorax. Bones unremarkable. IMPRESSION: 1. Mild hazy right lower lung field opacity. This may represent subsegmental atelectasis, focal air space pulmonary edema, or infection. 2. Mild left perihilar interstitial lung prominence. Causes include asthma, interstitial pulmonary edema, pulmonary fibrosis, infectious viral bronchiolit is, and interstitial bacterial bronchitis. Electronically signed by: Freddy Eason MD 05/23/2022 5:10 AM CDT Due to temporary technical issues with the PACS/Fluency reporting system, reports are being signed by the in house radiologists without review as a courtesy to insure prompt reporting. The interpreting radiologist is fully responsible for the content of the report.
--- NOTE | 2022-05-25 13:50 | EKG ---
Test Date: 2022-05-23 Test Time: 03:04:17 Utilization Review Nurse: TAVO MEASUREMENT RESULTS: Intervals: Rate: 80 LA: 122 QRSD: 88 QT: 344 QTc: 396 [place]: P: 26 LA: 122 QRS: 55 T: 42 INTERPRETIVE STATEMENTS: Normal sinus rhythm with sinus arrhythmia Normal ECG No previous ECG available for comparison Electronically Signed On 05-25-22 13:46:59 CDT by Conrado Abdul
== END 2022-05-23 06:19 | disposition home or self-care (01) ==
LOC: ER 02:49
DX: J45.901 Unspecified asthma with (acute) exacerbation (principal); J18.8 Other pneumonia, unspecified organism; Z20.822 Contact with and (suspected) exposure to COVID-19
CPT/HCPCS: 96365; 93005; 87040 ×2; 85025; 80048; 36415; 83735; 85610; 85379; 80076; 84484; 83880; 71045; 94640; 96375; 99284; U0003; J2930